=== PATIENT | male | born 1950 | race Asian ===

== ENCOUNTER 2024-04-30 08:45 | Outpatient (CLI) | payer BC | END 2024-04-30 08:46 | disposition home or self-care (01) | LOC: PET 08:45 | DX: R29.1 Meningismus (principal) | CPT/HCPCS: 78815; A9552 ==

== ENCOUNTER 2024-05-11 09:34 | Outpatient (CLI) | payer BC | END 2024-05-11 09:35 | disposition home or self-care (01) | LOC: BICMAMMO 09:34 | PROVIDERS: ATTEND Internal Medicine Endocrinology, Diabetes & Metabolism | DX: M88.9 Osteitis deformans of unspecified bone (principal); M85.852 Other specified disorders of bone density and structure, left thigh | CPT/HCPCS: 77080 ==

== ENCOUNTER 2024-05-17 07:27 | Outpatient (CLI) | payer BC | END 2024-05-17 07:28 | disposition home or self-care (01) | LOC: SCSMRI 07:27 | PROVIDERS: ATTEND Podiatrist Foot & Ankle Surgery | DX: G96.198 Other disorders of meninges, not elsewhere classified (principal); M47.812 Spondylosis without myelopathy or radiculopathy, cervical region; M48.02 Spinal stenosis, cervical region | CPT/HCPCS: 36415; 70553; 72156; 76376; 82565 ==